=== PATIENT | female | born 1950 | race Caucasian/White ===

== ENCOUNTER → 2017-02-05 | Outpatient (CLI) | payer MEDICARE, OTHER | LOC: GMAM 13:23 | PROVIDERS: ATTEND Family Medicine | DX: E53.8 Deficiency of other specified B group vitamins (principal) ==

== ENCOUNTER → 2017-02-10 | Outpatient (CLI) | payer MEDICARE, OTHER | END | disposition home or self-care (01) | LOC: GMAM 14:42 | PROVIDERS: ATTEND Family Medicine | DX: N39.0 Urinary tract infection, site not specified (principal) ==

== ENCOUNTER → 2017-07-26 | Outpatient (CLI) | payer MEDICARE, OTHER | LOC: GMAM 10:59 | PROVIDERS: ATTEND Family Medicine | DX: E53.8 Deficiency of other specified B group vitamins (principal); M10.00 Idiopathic gout, unspecified site ==

== ENCOUNTER → 2018-02-24 | Outpatient (CLI) | payer MEDICARE, OTHER | LOC: GMAM 10:28 | PROVIDERS: ATTEND Family Medicine | DX: E53.8 Deficiency of other specified B group vitamins (principal); M10.9 Gout, unspecified; E11.9 Type 2 diabetes mellitus without complications; I10 Essential (primary) hypertension ==

== ENCOUNTER → 2018-03-01 | Outpatient (CLI) | payer MEDICARE, OTHER ==
--- NOTE | 2018-03-01 16:00 | US ---
EXAM DESCRIPTION: Venous,Lower Extremity RT CLINICAL HISTORY: LOWER LIMB EDEMA COMPARISON: None Available. TECHNIQUE: Right lower extremity venous duplex FINDINGS: Doppler evaluation of the right lower extremity deep veins was performed. Normal color flow is seen in the common femoral, superficial femoral, profunda femoral and greater saphenous veins. Normal flow is seen in the popliteal vein and veins below the knee in the calf. Normal venous compressibility and flow augmentation. IMPRESSION: Negative for evidence of deep venous thrombosis on right lower extremity venous Doppler sonogram. Electronically signed by: Aldo Fuchs MD 03/01/2018 3:59 PM CDT
== END ==
LOC: US 11:23
PROVIDERS: ATTEND Family Medicine
DX: R60.1 Generalized edema (principal)

== ENCOUNTER → 2018-04-05 | Outpatient (CLI) | payer MEDICARE, OTHER | LOC: GMAM 14:46 | PROVIDERS: ATTEND Family Medicine | DX: M10.9 Gout, unspecified (principal) ==

== ENCOUNTER → 2018-07-25 | Outpatient (CLI) | payer MEDICARE, OTHER | LOC: GMAM 11:36 | PROVIDERS: ATTEND Family Medicine | DX: I10 Essential (primary) hypertension (principal); E53.8 Deficiency of other specified B group vitamins ==

== ENCOUNTER → 2019-01-20 | Outpatient (CLI) | payer MEDICARE, OTHER ==
--- NOTE | 2019-01-20 14:27 | CT ---
EXAM DESCRIPTION: Head: Computed Tomography. CLINICAL HISTORY: NEAR-SYNCOPE VERTIGO. Sinusitis. COMPARISON: CT scan of the sinuses and ultrasound Doppler evaluation of the carotids on the same visit. CT scan of the head without contrast 05/27/2016. TECHNIQUE: Non-helical axial scans through the skull and brain, at 2.5 x 20 mm intervals, non-contrast. Coronal and sagittal 2.0 mm reconstructions. Total Exam DLP: 859.97 mGy-cm. This exam was performed according to our departmental dose-optimization program which includes automated exposure control, adjustment of the mA and/or kV according to patient size and/or use of iterative reconstruction technique; to reduce radiation dose to as low as reasonably achievable (ALARA). FINDINGS: No hemorrhage, no mass-effect, and no midline shift. Bilateral focal areas of low-density in the mojica radiata and the subcortical white matter. More on the right than the left. Also the outer right basal ganglia. No abnormal radiodense material in the brain parenchyma. Vascular calcifications anterior; physiologic calcifications in the pineal gland and choroid plexus. No effacement or displacement of the ventricles, CSF spaces, or subdural spaces. No extra axial fluid collection or hemorrhage. No gross abnormalities of the bony calvarium. Symmetric mild thickening of the bilateral frontal bone inner tables stable since the prior study. Minimal paranasal sinus mucoperiosteal thickening. Bilateral mastoid air cells are unremarkable. IMPRESSION: 1. No hemorrhage, no mass effect, no midline shift. Changes related to aging and cerebral microvascular disease in the mojica radiata and subcortical white matter bilateral frontal and parietal lobes more right than left. Stable since the prior study. Also involvement of the lateral right basal ganglia which is stable. No extra-axial hemorrhage or fluid. 2. CT scans are insensitive for detecting small CVAs in the first 24 hours after onset. Evaluation of the brain stem is also limited. If symptoms persist, consider NON-EMERGENT MRI scan of the brain with diffusion imaging. Electronically signed by: Kuldeep Carpenter MD 01/20/2019 2:24 PM [facility]
--- NOTE | 2019-01-20 14:34 | CT ---
CLINICAL HISTORY: 68 years Female, VERTIGO NEAR-SYNCOPE COMPARISON: CT scan of the head noncontrast and ultrasound Doppler evaluation of the carotid and vertebral arteries on this visit. TECHNIQUE: Spiral, axial 2.5 x 2.5 mm scans through the paranasal sinuses and maxillofacial bones without contrast. Coronal and sagittal 2.0 mm reconstructions. Axial, helical 2.5 mm reconstruction using bone algorithm. Total Exam DLP: 223.53 mGy-cm. This exam was performed according to our departmental CT dose-optimization program which includes automated exposure control, adjustment of the mA and/or kV according to patient size and/or use of iterative reconstruction technique; to reduce radiation dose to as low as reasonably achievable (ALARA). FINDINGS: Mucoperiosteal thickening in the bilateral maxillary antra bases versus small polyps or cysts. No air-fluid levels. Bilateral ostiomeatal units are patent. No significant narrowing particularly mucosal hypertrophy in the bilateral nasal passageways. Minimal right septal deviation with no septal spurring. Minimal mucosal thickening posterior right ethmoid air cells. Sphenoid nasal ostia are patent bilaterally. No air-fluid levels and other sinus compartments. No significant soft tissue thickening or air-fluid levels in the bilateral mastoid air cells. No mass effect or effacement of the nasopharynx. No bone destruction. IMPRESSION: Minimal chronic disease in the bases of the bilateral maxillary antra, and in the posterior right ethmoid air cells. No acute sinusitis. Mild right septal deviation with no significant narrowing of the nasal passageways. Electronically signed by: Kuldeep Carpenter MD 01/20/2019 2:31 PM [employer]
--- NOTE | 2019-01-20 14:55 | US ---
EXAM DESCRIPTION: Carotid Duplex: ULTRASOUND. CLINICAL HISTORY: 68 years Female VERTIGO COMPARISON: CT scan of the head and CT scan of the paranasal sinuses on this visit. TECHNIQUE: Transcutaneous scanning utilizing elizalde-scale and Doppler modes to evaluate the bilateral carotid systems and vertebral arteries. Percentage of diameter of stenosis or no stenosis recorded will be based upon NASCET criteria. FINDINGS: Peak systolic/end diastolic (CM-Sec) CCA Right 89/19 Left 105/28. ICA Right proximal 55/12, mid 64/18. Left proximal 81/22, Distal 84/25. Vertebral Right 40/11 Left 37/11. ECA (PS Only) Right 83 left 83. ICA/CCA peak systolic ratio: Right 0.7 Left 0.8 ICA/CCA end diastolic ratio: Right 0.9 Left 0.9 Vertebral arteries: antegrade flow. Comments: Atherosclerotic calcification in the right common carotid bulb. Area stenosis is 42% and diameter stenosis is 51%. Spectral broadening and color turbulent flow in the proximal right ICA. Atherosclerotic calcification in the left common carotid bulb and proximal ICA with spectral broadening. Area stenosis is 29% in the proximal ICA and diameter stenosis 25%. IMPRESSION: 1. Doppler evaluation of the bilateral carotid systems and vertebral arteries shows no hemodynamically significant stenoses. Grayscale measurements of 51% diameter stenosis in the right common carotid bulb. 2. No significant amount of plaque seen in the carotid arteries bilaterally. Bilateral vertebral arteries showed antegrade-cephalad flow. Electronically signed by: Kuldeep Carpenter MD 01/20/2019 2:52 PM [facility]
== END ==
LOC: CT 09:00
DX: R42 Dizziness and giddiness (principal); R55 Syncope and collapse; J34.2 Deviated nasal septum

== ENCOUNTER → 2019-12-18 | Outpatient (CLI) | payer MEDICARE, OTHER | LOC: GMAM 10:36 | PROVIDERS: ATTEND Family Medicine | DX: E53.9 Vitamin B deficiency, unspecified (principal); M10.9 Gout, unspecified; E11.9 Type 2 diabetes mellitus without complications; I10 Essential (primary) hypertension; E78.2 Mixed hyperlipidemia ==

== ENCOUNTER → 2020-01-11 | Outpatient (CLI) | payer MEDICARE, OTHER | LOC: GMAM 17:14 | PROVIDERS: ATTEND Family Medicine | DX: D64.9 Anemia, unspecified (principal) ==

== ENCOUNTER → 2020-12-19 | Outpatient (CLI) | payer MEDICARE, OTHER | LOC: GMAM 11:07 | PROVIDERS: ATTEND Family Medicine | DX: E53.8 Deficiency of other specified B group vitamins (principal); M10.9 Gout, unspecified; I10 Essential (primary) hypertension; E11.9 Type 2 diabetes mellitus without complications; E78.2 Mixed hyperlipidemia ==